=== PATIENT | male | born 1970 | race Two or more races ===

== ENCOUNTER 2018-08-16 08:06 | Emergency (ER) | payer OTHER ==
[~2018-08-16] VITALS: Ht 172.7 cm; Wt 102.1 kg
[2018-08-16 08:45] VITALS: BP 123/78
== END 2018-08-16 09:12 | disposition home or self-care (01) ==
LOC: ER 08:06
DX: M17.11 Unilateral primary osteoarthritis, right knee (principal); X50.1XXA Overexertion from prolonged static or awkward postures, initial encounter; Y93.01 Activity, walking, marching and hiking; Y92.89 Other specified places as the place of occurrence of the external cause; Y99.8 Other external cause status
CPT/HCPCS: 73562

== ENCOUNTER 2023-06-13 11:47 | Inpatient (IN) | payer MEDICAID, OTHER ==
[~2023-06-13] VITALS: Ht 172.7 cm; Wt 98.5 kg
[2023-06-13] MEDS ORDERED: MORPHINE SULFATE 4 MG/ML SYR/VIAL IV ONE (12:00)
[2023-06-13] MEDS ORDERED: ONDANSETRON HCL 4 MG/2 ML VIAL IV ONE (12:00)
[2023-06-13 12:14] LABS: Basophils # (auto) 0 10 ^3/uL (0-0.2); Basophils % (auto) 0.2 % (0.0-2.0); Eosinophils # (auto) 0 10 ^3/uL (0-0.8); Eosinophils % (auto) 0.3 % (0.0-7.0); Hematocrit 44.5 % (41.0-53.0); Lymphocytes # (auto) 1.8 10 ^3/uL (0.4-5.4); Lymphocytes % (auto) 15.4 % (10.0-50.0); Mean Corpuscular Hemoglobin 29.6 pg (28.0-32.0); Mean Corpuscular Hgb Conc. 33.7 g/dL (32.0-36.0); Mean Corpuscular Volume 87.7 fL (80.0-100.0); Monocytes # (auto) 0.8 10 ^3/uL (0-1.3); Monocytes % (auto) 7.1 % (0.0-12.0); Neutrophils # (auto) 8.9 10 ^3/uL (1.6-8.6); Red Blood Cells 5.07 10^6/uL (4.5-5.90); Red Cell Distribution Width 12.7 % (11.8-14.3); White Blood Cell 11.6 10^3/uL (4.4-10.8)
[2023-06-13 12:15] VITALS: PULSE 95; RESP 22; O2SAT 96
[2023-06-13 12:31] LABS: Alanine Aminotransferase 25 U/L (7-40); Albumin 4.3 g/dL (3.2-4.8); Alkaline Phosphatase 64 U/L (46-116); Anion Gap 6 (5-15); Aspartate Aminotransferase 21 U/L (13-40); BUN/Creatinine Ratio 13.9 (10.0-20.0); Blood Alcohol < 3.0 mg/dL (<10); Blood Urea Nitrogen 17 mg/dL (9-23); Calcium 8.7 mg/dL (8.7-10.4); Carbon Dioxide 26 mmol/L (20-30); Chloride 105 mmol/L (98-107); Glucose 170 mg/dL (74-106); Lipase 34 U/L (12-53); Magnesium 1.7 mg/dL (1.6-2.6); Potassium 4.1 mmol/L (3.5-5.1); Sodium 137 mmol/L (136-145)
[2023-06-13 12:32] LABS: Acetaminophen < 2.0 UG/ML (10.0-20.0); Bilirubin, Total 0.5 mg/dL (0.2-1.0); Total Protein 7.4 g/dL (5.7-8.2)
[2023-06-13 12:34] LABS: Salicylate < 3.0 mg/dL (2.8-20.0)
[2023-06-13] MEDS ORDERED: MAALOX PLUS or MAALOX 30 ML PO ONE (13:30)
[2023-06-13] MEDS ORDERED: MORPHINE SULFATE 4 MG/ML SYR/VIAL IV PRN (15:45)
[2023-06-13] MEDS ORDERED: ACETAMINOPHEN 325 MG TAB PO PRN (15:45)
[2023-06-13] MEDS ORDERED: NITROGLYCERIN 0.4 MG SL TAB SL PRN (15:45)
[2023-06-13] MEDS ORDERED: ONDANSETRON HCL 4 MG/2 ML VIAL IV PRN (15:45)
[2023-06-13 16:25] LABS: Magnesium 1.9 mg/dL (1.6-2.6)
[2023-06-13 16:27] LABS: Phosphorus 1.7 mg/dL (2.4-5.1)
[2023-06-13] MEDS ORDERED: IBUPROFEN 600 MG TAB PO ONE (16:30)
[2023-06-13 16:36] LABS: INR 1.04 (0.9-1.15); Prothrombin Time 10.9 sec (9.3-11.8)
[2023-06-13 17:19] LABS: Amphetamine Screen, Urine Neg (NEGATIVE); Barbiturate Scree,Urine Neg (NEGATIVE); Benzodiazephine Screen, Urine Pos (NEGATIVE); Cannabinoid Screen, Urine Neg (NEGATIVE); Cocaine Screen, Urine Neg (NEGATIVE); Opiate Scree,Urine Neg (NEGATIVE); Phencyclidine Screen, Urine Neg (NEGATIVE)
[2023-06-13 19:40] VITALS: PULSE 89; RESP 21; O2SAT 93
[2023-06-13] MEDS: ATORVASTATIN 20 MG TAB PO SCH (21:59)
[2023-06-13] MEDS: COLCHICINE 0.6 MG CAP PO SCH (21:59)
[2023-06-14] VITALS (8 sets, daily range): BP systolic 99–129; BP diastolic 64–84; PULSE 75–93; RESP 16–22; TEMP 98.3–100; O2SAT 93–98
[2023-06-14 05:38] LABS: Basophils # (auto) 0 10 ^3/uL (0-0.2); Basophils % (auto) 0.1 % (0.0-2.0); Eosinophils # (auto) 0 10 ^3/uL (0-0.8); Eosinophils % (auto) 0.2 % (0.0-7.0); Hematocrit 41.8 % (41.0-53.0); Hemoglobin 14.1 g/dL (13.5-17.5); Lymphocytes # (auto) 1.7 10 ^3/uL (0.4-5.4); Lymphocytes % (auto) 16.1 % (10.0-50.0); Mean Corpuscular Hemoglobin 29.7 pg (28.0-32.0); Mean Corpuscular Hgb Conc. 33.6 g/dL (32.0-36.0); Mean Corpuscular Volume 88.4 fL (80.0-100.0); Monocytes # (auto) 1.6 10 ^3/uL (0-1.3); Neutrophils # (auto) 7.3 10 ^3/uL (1.6-8.6); Neutrophils % (auto) 68.6 % (37.0-80.0); Red Blood Cells 4.73 10^6/uL (4.5-5.90); White Blood Cell 10.6 10^3/uL (4.4-10.8)
[2023-06-14 06:02] LABS: Alanine Aminotransferase 22 U/L (7-40); Albumin 3.9 g/dL (3.2-4.8); Alkaline Phosphatase 49 U/L (46-116); Calcium 8.7 mg/dL (8.5-10.1); Triglycerides 71 mg/dL (< 150)
[2023-06-14 06:03] LABS: Anion Gap 9 (5-15); Aspartate Aminotransferase 17 U/L (13-40); BUN/Creatinine Ratio 12.5 (10.0-20.0); Bilirubin, Total 0.9 mg/dL (0.2-1.0); Blood Urea Nitrogen 11 mg/dL (9-23); Carbon Dioxide 22 mmol/L (20-30); Chloride 109 mmol/L (98-107); Cholesterol 154 mg/dL (< 200); Glucose 127 mg/dL (74-106); HDL Cholesterol 41 mg/dL (40-59); LDL Cholesterol 106 mg/dL (< 100); Potassium 3.9 mmol/L (3.5-5.1); Sodium 140 mmol/L (136-145); Total Protein 6.5 g/dL (5.7-8.2)
[2023-06-14] MEDS ORDERED: ASPirin 81 mg TAB PO SCH (10:00)
[2023-06-14 10:06] LABS: CRP High Sensitivity 8.41 mg/dL (<1.0)
[2023-06-14] MEDS: COLCHICINE 0.6 MG CAP PO SCH ×2 (10:14→23:40)
[2023-06-14] MEDS: DOCUSATE SOD 100 MG CAP PO SCH (10:14)
[2023-06-14] MEDS: ASPirin 325 MG TAB PO SCH ×2 (10:14→19:11)
[2023-06-14] MEDS: PANTOPRAZOLE 40 MG TAB PO SCH ×2 (10:15→23:40)
[2023-06-14 12:03] LABS: Erythrocyte Sedimentation Rate 29 mm/hr (0-20)
[2023-06-14 13:28] LABS: COVID19 ANTIGEN SOFIA FIA NEGATIVE (NEGATIVE); Rapid Influenza A Negative (Negative); Rapid Influenza B Negative (Negative)
[2023-06-14] MEDS ORDERED: LIDOCAINE 2%HCL (LOCAL ANESTH.) INJ 20ML MDV ONE (21:19)
[2023-06-14] MEDS ORDERED: IOHEXOL 350 MG/ML 100ML IJ ONE (21:19)
[2023-06-14] MEDS ORDERED: HEPARIN SODIUM (PORCINE) 5000 UNITS/ML 1ML VIAL ONE (21:30)
[2023-06-14] MEDS ORDERED: VERAPAMIL 2.5MG/ML INJ 2ML VIAL IV ONE (21:30)
[2023-06-14] MEDS ORDERED: ANGIOMAX 250 MG VIAL IV ONE (21:30)
[2023-06-14] MEDS ORDERED: MIDAZOLAM HCL 2MG/2ML 2ml VIAL (1mg/ml) ONE (21:31)
[2023-06-14] MEDS ORDERED: fentaNYL CITRATE 100 MCG/2 ML VL ONE (21:31)
[2023-06-14] MEDS: ATORVASTATIN 20 MG TAB PO SCH (23:40)
[2023-06-15] MEDS: ASPirin 325 MG TAB PO SCH ×2 (01:11→11:12)
[2023-06-15 05:07] VITALS: BP 109/69; PULSE 76; RESP 17; TEMP 98.9; O2SAT 96
[2023-06-15 06:43] LABS: Basophils # (auto) 0 10 ^3/uL (0-0.2); Basophils % (auto) 0.1 % (0.0-2.0); Eosinophils # (auto) 0.2 10 ^3/uL (0-0.8); Eosinophils % (auto) 2.1 % (0.0-7.0); Hematocrit 42.7 % (41.0-53.0); Hemoglobin 14.5 g/dL (13.5-17.5); Lymphocytes # (auto) 1.6 10 ^3/uL (0.4-5.4); Lymphocytes % (auto) 19.2 % (10.0-50.0); Mean Corpuscular Hemoglobin 29.6 pg (28.0-32.0); Monocytes # (auto) 1.3 10 ^3/uL (0-1.3); Monocytes % (auto) 15.3 % (0.0-12.0); Neutrophils # (auto) 5.4 10 ^3/uL (1.6-8.6); Neutrophils % (auto) 63.3 % (37.0-80.0); Nucleated Red Blood Cells % 0.1 %; White Blood Cell 8.5 10^3/uL (4.4-10.8)
[2023-06-15 06:53] LABS: Alanine Aminotransferase 19 U/L (7-40); Albumin 4.1 g/dL (3.2-4.8); Alkaline Phosphatase 62 U/L (46-116); Anion Gap 4 (5-15); Aspartate Aminotransferase 19 U/L (13-40); BUN/Creatinine Ratio 13.8 (10.0-20.0); Blood Urea Nitrogen 13 mg/dL (9-23); Calcium 8.5 mg/dL (8.7-10.4); Carbon Dioxide 25 mmol/L (20-30); Chloride 108 mmol/L (98-107); Glucose 83 mg/dL (74-106); Magnesium 1.9 mg/dL (1.6-2.6); Potassium 3.8 mmol/L (3.5-5.1); Sodium 137 mmol/L (136-145)
[2023-06-15 06:54] LABS: Bilirubin, Total 0.9 mg/dL (0.2-1.0); Total Protein 7.2 g/dL (5.7-8.2)
[2023-06-15 08:00] VITALS: BP 104/63; PULSE 72; PULSE 83; PULSE 84; RESP 18; TEMP 97.9; O2SAT 96; O2SAT 97
[2023-06-15] MEDS: DOCUSATE SOD 100 MG CAP PO SCH (11:11)
[2023-06-15] MEDS: PANTOPRAZOLE 40 MG TAB PO SCH (11:11)
[2023-06-15] MEDS: COLCHICINE 0.6 MG CAP PO SCH (11:12)
[2023-06-15 12:05] VITALS: BP 113/67; PULSE 85; RESP 18; TEMP 98.5; O2SAT 97
[2023-06-15] MEDS ORDERED: ATOR20TA50 PO (13:02)
[2023-06-15] MEDS ORDERED: PANT40T PO (13:02)
[2023-06-15] MEDS ORDERED: COLC0.6T56 PO (13:02)
== END 2023-06-15 15:44 | disposition home or self-care (01) | DRG 192 ==
LOC: EDBD 11:47 → ER 11:47 → TELE 15:38 → TELE-WESTW 06-14 16:07
PROVIDERS: ADMIT Nurse Practitioner Family; ATTEND Nurse Practitioner Family
PROC: B211YZZ Fluoroscopy of Multiple Coronary Arteries using Other Contrast (ICD-10-PCS; principal; 2023-06-14)
PROC: 4A023N7 Measurement of Cardiac Sampling and Pressure, Left Heart, Percutaneous Approach (ICD-10-PCS; 2023-06-14)
DX: I31.9 Disease of pericardium, unspecified (principal); J96.01 Acute respiratory failure with hypoxia; D72.829 Elevated white blood cell count, unspecified; E11.65 Type 2 diabetes mellitus with hyperglycemia; E66.9 Obesity, unspecified; E78.5 Hyperlipidemia, unspecified; I50.9 Heart failure, unspecified; Z20.822 Contact with and (suspected) exposure to COVID-19; R00.1 Bradycardia, unspecified; Z63.9 Problem related to primary support group, unspecified; Z68.33 Body mass index [BMI] 33.0-33.9, adult
CPT/HCPCS: 36415; 71045; 71275; 80053; 80061; 80307; 80320; 80329; 83036; 83690; 83735; 83880; 84100; 84443; 84484; 85025; 85379; 85610; 85652; 86141; 87426; 87804; 93005; 93306; 93454; 96374; 96375; 99152; G0378; J2250; J2405